=== PATIENT | female | born 1945 | race Caucasian/White ===

== ENCOUNTER 2022-10-10 13:18 | Emergency (ER) | payer MEDICARE, OTHER ==
[~2022-10-10 13:18] MED LIST: Iopamidol 370 76% 200 ML VIAL ONE; Sodium Chloride 0.9% 100 ML BAG ONE
[2022-10-10] MEDS ORDERED: Acetaminophen 500 MG TAB ONE (13:53)
[2022-10-10] MEDS ORDERED: Sodium Chloride 0.9% 500 ML ONE ×4 (13:53→17:48)
[2022-10-10 14:18] LABS: ALT (SGPT) 48 U/L (8-55); AST (SGOT) 44 U/L (5-34); Albumin 3.9 g/dL (3.4-4.8); Alkaline Phosphatase 51 U/L (40-110); Anion Gap 15 mmol/L (10-20); BUN (Urea Nitrogen) 28 mg/dL (9.8-20.1); Bilirubin, Total 0.6 mg/dL (0.2-1.2); Calc. Creatinine Clearance 0 mL/min (70-130); Calcium 8.9 mg/dL (7.8-10.44); Carbon Dioxide 19 mmol/L (23-31); Chloride 110 mmol/L (98-107); Estimated GFR 34; Globulin 2.5 g/dL (2.4-3.5); Glucose 101 mg/dL (83-110); Lipase 37 U/L (8-78); Magnesium 1.7 mg/dL (1.6-2.6); Potassium 2.9 mmol/L (3.5-5.1); Protein, Total 6.4 g/dL (5.8-8.1); Sodium 141 mmol/L (136-145)
[2022-10-10 14:29] LABS: Band 10 % (5-11); Hemoglobin 9.2 g/dL (12.0-16.0); Hypochromia SLIGHT = 6-15 cells (100X) (0-5/hpf); Lymphocytes 42 % (21-51); MDiff Complete? YES; Mean Corpuscular HGB CONC 32.8 g/dL (32.0-36.0); Mean Corpuscular Hemoglobin 31.2 pg (27.0-31.0); Mean Platelet Volume 9.1 fL (7.4-10.4); Monocytes 15 % (0-10); Neutrophil 32 % (42-75); Nucleated RBC (Manual Ct) 20 % (0); Platelet Adequacy Comment Appears Adequate; Platelet Count 359 10x3/uL (130-400); RBC Distribution Width 20.3 % (11.5-14.5); Reactive Lymphocytes 1 % (0-10); Red Blood Cell (RBC) Count 2.96 mill/uL (4.20-5.40); White Blood Cell (WBC) Count 4.5 10x3/uL (4.8-10.8)
[2022-10-10 14:32] LABS: Bilirubin Negative (Negative); Blood, Urine Small (Negative); Clarity Clear (Clear); Glucose, Urine (Dipstick) Negative (Negative); Ketone, Urine Negative (Negative); Leukocyte Negative (Negative); Nitrite Negative (Negative); Protein, Urine (Dipstick) Trace mg/dL (Neg-Trace); Urobilinogen 0.2 mg/dL (Less than 2); pH, Urine 5.5 (5.0-9.0)
[2022-10-10 14:34] LABS: CKMB 0.5 ng/mL (0-6.6)
[2022-10-10 14:35] LABS: CAUTI Indications for Culture Fever or rigors
[2022-10-10] MEDS ORDERED: Vancomycin 1 GM VIAL ONE (14:39)
[2022-10-10] MEDS ORDERED: Cefepime 2 GM VIAL ONE (14:39)
[2022-10-10] MEDS ORDERED: Potassium Chloride 20 MEQ TAB ONE (14:39)
[2022-10-10] MEDS ORDERED: Sodium Chloride 0.9% 250 ML 250 ML ONE (14:39)
[2022-10-10 14:41] LABS: Bacteria/HPF 2+ HPF (None Seen); RBC/HPF 0-3 HPF (0-3); Squamous Epithelial 0-3 HPF (0-3); WBC/HPF 0-3 HPF (0-3)
[2022-10-10 14:42] LABS: Urine Culture Reflex No No
[2022-10-10] MEDS ORDERED: Metoprolol Tartrate 5 MG/5 ML VIAL ONE (14:51)
[2022-10-10 15:33] LABS: Base Excess-Venous -4.7 mmol/L (-2.0 to 3.0); Bicarbonate (HCO3v) 18.5 mmol/L (22.0-28.0); Chloride 117 mmol/L (98-107); Hemoglobin - Calc 8.8 g/dL (12.0-16.0); Potassium 3.2 mmol/L (3.5-5.1); Sodium 144 mmol/L (138-145); vO2 Saturation-calc 89.4 % (60.0-85.0)
[2022-10-10 15:34] LABS: Calcium, Ionized 1.04 mmol/L (1.15-1.33); T. Carbon Dioxide 19.4 mmol/L (22.0-28.0)
[2022-10-10 15:53] LABS: SARS-CoV-2 NAA Rapid Test Not Detected (NotDetected)
[2022-10-10] MEDS ORDERED: Ondansetron PF 4 MG/2 ML Vial ONE (16:48)
[2022-10-10 17:10] LABS: Troponin I 0.094 ng/mL (< 0.028)
== END 2022-10-10 18:11 | disposition short-term general hospital (02) ==
LOC: MADERS 13:18
DX: A41.9 Sepsis, unspecified organism (principal); J18.9 Pneumonia, unspecified organism; I48.91 Unspecified atrial fibrillation; K76.89 Other specified diseases of liver; N28.1 Cyst of kidney, acquired; E87.6 Hypokalemia; R77.8 Other specified abnormalities of plasma proteins; C79.51 Secondary malignant neoplasm of bone; E03.9 Hypothyroidism, unspecified; Z20.822 Contact with and (suspected) exposure to COVID-19; Z79.01 Long term (current) use of anticoagulants; Z79.899 Other long term (current) drug therapy
CPT/HCPCS: 0240U; 51701; 71275; 74174; 80053; 81001; 82330; 82435; 82553; 82803; 83605; 83690; 83735; 83880; 84132; 84295; 84484 ×2; 85014; 85025; 87040; 87077; 87086; 87149 ×2; 87186; 93005; 96361; 96365; 96375; 99285; 36415; J0692; J2405; J3370; J7030; J7050